=== PATIENT | male | born 1950 | race Native Hawaiian/Other Pacific Islander ===

== ENCOUNTER 2018-04-07 15:14 | Outpatient (CLI) | payer OTHER ==
[2018-04-07] MEDS ORDERED: ALLO100T22 PO (17:47)
[2018-04-07] MEDS ORDERED: DOCU100C10 PO (17:49)
[2018-04-07] MEDS ORDERED: ATEN50TA36 PO (17:49)
[2018-04-07] MEDS ORDERED: LIPITOR40 MG PO (17:50)
[2018-04-07] MEDS ORDERED: RISP0.5T2 PO (17:51)
[2018-04-07] MEDS ORDERED: RISP1TAB PO (17:52)
[2018-04-07] MEDS ORDERED: LISI10TA11 PO (17:53)
== END 2018-04-07 15:36 | disposition short-term general hospital (02) ==
LOC: AMB 15:14
DX: F03.91 Unspecified dementia, unspecified severity, with behavioral disturbance (principal)
CPT/HCPCS: A0425; A0429